=== PATIENT | female | born 1955 | race Caucasian/White ===

== ENCOUNTER → 2016-12-07 | Outpatient (CLI) | payer OTHER ==
[~2016-12-07] MED LIST: ARTI99.0 OU; BACITAB3 PO; E-Z-GAS II EFFERVESCENT PACKET (SODIUM BICARB./CITRIC ACID/SIMETHICONE) As Ordered ONE; E-Z-HD 98% w/w 340GM SUSP BTL As Ordered ONE; E-Z-PAQUE 96% w/w SUSP 176GM BTL As Ordered ONE; HERB LAX PO; MOTR200T44 PO; OLIVE LEAF EXTRACT PO; VITA-122 PO; XARE15TA PO
--- NOTE | 2016-12-07 16:34 | REP ---
ESOPHAGRAM, AIR CONTRAST: The procedure was performed under the direct supervision of Dr. Farmer. The images were reviewed with Dr. Farmer. A single view PA chest x-ray is submitted as a surface plate finisher film. The superior mediastinal structures are midline. The heart size is within normal limits. The lungs are clear. Liquid barium and gas-producing granules were given in the erect position as well as liquid barium in the prone oblique position in order to perform a double-contrast esophagram examination. The oral and pharyngeal stage of deglutition are unremarkable. Esophageal transport is prompt and efficient and there is no esophagitis, stricture, or mucosal ring. There is a sliding type hiatal hernia present. There is gastroesophageal reflux is not demonstrated to below the level of the damaris. Note is made of several subcentimeter polyps within the stomach. IMPRESSION: 1. There is a sliding type hiatal hernia present. There is gastroesophageal reflux demonstrated to below the level of the damaris. 2. Note is made of several subcentimeter polyps visualized within the stomach. 57 seconds of fluoroscopic time was utilized for this procedure. Reviewed by BENJAMIN Nieves 12/07/2016 04:36 PEdited and Signed by Alvaro Farmer MD 12/08/2016 06:23 P
== END ==
LOC: M RAD 08:16
PROVIDERS: ATTEND Internal Medicine Gastroenterology
DX: R13.12 Dysphagia, oropharyngeal phase (principal); K31.7 Polyp of stomach and duodenum; K44.9 Diaphragmatic hernia without obstruction or gangrene; K21.9 Gastro-esophageal reflux disease without esophagitis

== ENCOUNTER → 2016-12-08 | Outpatient (CLI) | payer OTHER ==
[~2016-12-08] MED LIST changes: -E-Z-GAS II EFFERVESCENT PACKET (SODIUM BICARB./CITRIC ACID/SIMETHICONE) As Ordered ONE; -E-Z-HD 98% w/w 340GM SUSP BTL As Ordered ONE; -E-Z-PAQUE 96% w/w SUSP 176GM BTL As Ordered ONE
== END ==
LOC: M SMT 10:50
PROVIDERS: ATTEND Physician Assistant Medical
DX: I82.432 Acute embolism and thrombosis of left popliteal vein (principal); I26.99 Other pulmonary embolism without acute cor pulmonale

== ENCOUNTER → 2017-03-21 | Outpatient (REF) | payer OTHER | LOC: M LABDRAW1 11:19 | PROVIDERS: ATTEND Physician Assistant Medical | DX: E78.01 Familial hypercholesterolemia (principal) ==

== ENCOUNTER 2018-11-17 05:09 | Emergency (ER) | payer OTHER ==
[~2018-11-17] VITALS: Ht 172.7 cm; Wt 77.3 kg
[~2018-11-17 05:09] MED LIST changes: +BACITAB PO; -BACITAB3 PO
[2018-11-17] MEDS ORDERED: VITA400C67 PO (05:15)
[2018-11-17] MEDS ORDERED: GARL500C5 PO (05:15)
[2018-11-17] MEDS ORDERED: NYQU1LIQ PO (05:15)
[2018-11-17] MEDS ORDERED: [UNRECOGNIZED DRUG - CODE] PO (05:19)
[2018-11-17] MEDS ORDERED: OLIV500C PO (05:19)
[2018-11-17 06:02] LABS: VENOUS BASE EXCESS 0.9 (-2.0-2.0); VENOUS HCO3 26.5 MEQ/L (23.0-27.0); VENOUS PARTIAL PRESSURE CO2 45.8 mmHg (38.0-50.0); VENOUS PARTIAL PRESSURE O2 34.4 mmHg (30.0-50.0); VENOUS STANDARD HCO3 24.4 MEQ/L; VENOUS TOTAL CO2 27.9 MEQ/L (24.0-28.0)
[2018-11-17 06:05] LABS: BASO % 0.3 % (0.0-1.0); EOS # 0.2 10^3/uL (0.0-0.50); EOS % 2.6 % (0.0-3.0); HEMATOCRIT 42.6 % (36.0-47.0); HEMOGLOBIN 13.8 g/dl (12.0-15.5); LYMPH # 1.2 10^3/uL (1.5-4.5); LYMPH % 21.5 % (24.0-44.0); MEAN CORPUSCULAR HEMOGLOBIN 29.7 pg (27.0-33.0); MEAN CORPUSCULAR HGB CONC 32.4 g/dl (32.0-36.5); MEAN CORPUSCULAR VOLUME 91.6 fl (80.0-96.0); MONO # 0.8 10^3/uL (0.0-0.8); MONO % 14.3 % (0.0-5.0); NEUTROPHILS # 3.5 10^3/uL (1.8-7.7); NEUTROPHILS % 61.1 % (36.0-66.0); PLATELET COUNT, AUTOMATED 203 10^3/uL (150-450); RED BLOOD COUNT 4.65 10^6/uL (4.00-5.40); WHITE BLOOD COUNT 5.7 10^3/uL (4.0-10.0)
[2018-11-17] MEDS ORDERED: IPRATROPIUM 0.5MG/ALBUTEROL 2.5MG INH SOL UD 3ML (DUONEB)(J7620) NEB ONE (06:15)
[2018-11-17 06:49] LABS: ALBUMIN 3.5 GM/DL (3.2-5.2); ALT/SGPT 20 U/L (12-78); BILIRUBIN,DIRECT 0.2 MG/DL (0.0-0.2); BILIRUBIN,TOTAL 0.7 MG/DL (0.2-1.0); BLOOD UREA NITROGEN 13 MG/DL (7-18); CALCIUM LEVEL 8.2 MG/DL (8.8-10.2); CARBON DIOXIDE LEVEL 26 MEQ/L (21-32); CHLORIDE LEVEL 109 MEQ/L (98-107); CPK CREATINE PHOSPHOKINASE 102 U/L (26-192); GLOMERULAR FILTRATION RATE > 60.0 (>45); GLUCOSE, FASTING 81 MG/DL (70-100); MB/CK RELATIVE INDEX 1.18 (< OR =4); NT-PRO BNP 68 PG/ML (<125); POTASSIUM SERUM 3.8 MEQ/L (3.5-5.1); SODIUM LEVEL 142 MEQ/L (136-145); THYROXINE (T4) 11.6 UG/DL (4.5-12.0); TOTAL PROTEIN 6.9 GM/DL (6.4-8.2); TROPONIN I < 0.02 NG/ML (< 0.10)
[2018-11-17 07:27] LABS: INFLUENZA A AMPLIFICATION NEGATIVE (NEGATIVE); INFLUENZA B AMPLIFICATION NEGATIVE (NEGATIVE)
[2018-11-17] MEDS ORDERED: PSEU30TA21 PO (08:37)
[2018-11-17] MEDS ORDERED: VENTAER INH (08:37)
--- NOTE | 2018-11-17 08:40 | REP ---
Clinical: Cough and dyspnea . Comparison: 09/08/2016 . Findings: The mediastinum and cardiac silhouette are stable and within normal limits for portable technique. The lung uribe are clear without acute consolidation, effusion, or pneumothorax. Skeletal structures are intact. Impression: No acute cardiopulmonary process appreciated. Electronically Signed by Reji Drummnod MD 11/17/2018 08:31 A
[2018-11-17] MEDS ORDERED: ALBUTEROL 90 MCG/ACT 8GM HFA INHALER INH ONE (08:45)
[2018-11-17 09:04] VITALS: BP 129/67
--- NOTE | 2018-11-17 09:37 | ECGEPIP ---
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
== END 2018-11-17 09:06 | disposition home or self-care (01) ==
LOC: M ED 05:09
DX: J06.9 Acute upper respiratory infection, unspecified (principal)

== ENCOUNTER → 2020-06-17 | Outpatient (CLI) | payer MEDICARE, OTHER ==
[~2020-06-17] MED LIST changes: -ARTI99.0 OU; +GARL500C5 PO; +LIDOCAINE; +NYQU1LIQ PO; +OLIV250C PO; +OLIV500C PO; +POLYOPD OU; +PSEU30TA21 PO; +SM G150T PO; +VENTAER INH; +VITA400C67 PO; +[UNRECOGNIZED DRUG - CODE] PO
== END ==
LOC: M LABSMTC 13:01
PROVIDERS: ATTEND Anesthesiology
DX: Z01.812 Encounter for preprocedural laboratory examination (principal); Z20.828 Contact with and (suspected) exposure to other viral communicable diseases
CPT/HCPCS: C9803; U0003

== ENCOUNTER 2020-06-22 06:45 | Day surgery (SDC) | payer MEDICARE ==
[~2020-06-22] VITALS: Ht 172.7 cm; Wt 80.7 kg
[~2020-06-22 06:45] MED LIST changes: +NS 1,000 ML IV ONE
[2020-06-22] MEDS ORDERED: LIDOCAINE 2% 100MG/5ML SDV (FOR ANES.) As Ordered ONE (08:11)
[2020-06-22] MEDS ORDERED: propofoL 200 MG/20 ML VIAL As Ordered ONE ×3 (08:11→08:35)
[2020-06-22] MEDS ORDERED: ePHEDrine SULFATE 25 MG/5 ML(5MG/ML) SYRINGE As Ordered ONE (08:28)
[2020-06-22 09:10] VITALS: BP 168/75
[2020-06-22 09:47] LABS: HEMATOCRIT 42.9 % (36.0-47.0); HEMOGLOBIN 13.6 g/dl (12.0-15.5); MEAN CORPUSCULAR HEMOGLOBIN 29.8 pg (27.0-33.0); MEAN CORPUSCULAR HGB CONC 31.7 g/dl (32.0-36.5); MEAN CORPUSCULAR VOLUME 94.1 fl (80.0-96.0); PLATELET COUNT, AUTOMATED 208 10^3/uL (150-450); RED BLOOD COUNT 4.56 10^6/uL (4.00-5.40); WHITE BLOOD COUNT 4.1 10^3/uL (4.0-10.0)
[2020-06-22 10:11] LABS: ALBUMIN 3.5 GM/DL (3.2-5.2); ALT/SGPT 20 U/L (12-78); BLOOD UREA NITROGEN 10 MG/DL (7-18); CALCIUM LEVEL 8.7 MG/DL (8.8-10.2); CARBON DIOXIDE LEVEL 29 MEQ/L (21-32); CHLORIDE LEVEL 111 MEQ/L (98-107); CREATININE FOR GFR 0.81 MG/DL (0.55-1.30); GLOMERULAR FILTRATION RATE > 60.0 (>45); GLUCOSE, FASTING 94 MG/DL (70-100); POTASSIUM SERUM 4.4 MEQ/L (3.5-5.1); SODIUM LEVEL 145 MEQ/L (136-145); TOTAL PROTEIN 6.9 GM/DL (6.4-8.2)
== END 2020-06-22 09:34 | disposition home or self-care (01) ==
LOC: M OPP 06:45
PROVIDERS: ATTEND Internal Medicine Gastroenterology
DX: K62.89 Other specified diseases of anus and rectum (principal); D49.0 Neoplasm of unspecified behavior of digestive system; D12.2 Benign neoplasm of ascending colon; C20 Malignant neoplasm of rectum; K51.211 Ulcerative (chronic) proctitis with rectal bleeding; K62.5 Hemorrhage of anus and rectum; R19.4 Change in bowel habit

== ENCOUNTER 2021-07-18 04:19 | Observation (INO) | payer MEDICARE, OTHER ==
[~2021-07-18] VITALS: Ht 172.7 cm; Wt 74.1 kg
[~2021-07-18 04:19] MED LIST changes: -NS 1,000 ML IV ONE
[2021-07-18 05:40] LABS: BASO % 0.2 % (0.0-1.0); EOS # 0.2 10^3/uL (0.0-0.5); EOS % 2.4 % (0.0-3.0); HEMOGLOBIN 11.9 g/dl (12.0-15.5); LYMPH # 0.5 10^3/uL (1.5-5.0); LYMPH % 8.5 % (24.0-44.0); MEAN CORPUSCULAR HEMOGLOBIN 30.3 pg (27.0-33.0); MEAN CORPUSCULAR HGB CONC 33.1 g/dl (32.0-36.5); MEAN CORPUSCULAR VOLUME 91.6 fl (80.0-96.0); MONO # 0.9 10^3/uL (0.0-0.8); MONO % 14.2 % (2.0-8.0); NEUTROPHILS # 4.7 10^3/uL (1.5-8.5); NEUTROPHILS % 74.2 % (36.0-66.0); PLATELET COUNT, AUTOMATED 179 10^3/uL (150-450); RED BLOOD COUNT 3.93 10^6/uL (4.00-5.40); WHITE BLOOD COUNT 6.3 10^3/uL (4.0-10.0)
[2021-07-18 05:50] LABS: INR 1.01; PROTHROMBIN TIME 13.7 SECONDS (12.7-14.5)
--- NOTE | 2021-07-18 06:02 | ECGEPIP ---
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
[2021-07-18 06:13] LABS: ALBUMIN 3.1 GM/DL (3.2-5.2); ALT/SGPT 20 U/L (12-78); BILIRUBIN,DIRECT 0.2 MG/DL (0.0-0.2); BILIRUBIN,TOTAL 1.2 MG/DL (0.2-1.0); BLOOD UREA NITROGEN 14 MG/DL (7-18); CALCIUM LEVEL 8.2 MG/DL (8.8-10.2); CARBON DIOXIDE LEVEL 28 MEQ/L (21-32); CHLORIDE LEVEL 108 MEQ/L (98-107); CPK CREATINE PHOSPHOKINASE 88 U/L (26-192); CREATININE FOR GFR 0.74 MG/DL (0.55-1.30); GLOMERULAR FILTRATION RATE > 60.0 (>45); GLUCOSE, FASTING 99 MG/DL (70-100); LIPASE 63 U/L (73-393); MB/CK RELATIVE INDEX 1.14 (< OR =4); POTASSIUM SERUM 3.9 MEQ/L (3.5-5.1); SODIUM LEVEL 140 MEQ/L (136-145); TOTAL PROTEIN 6.4 GM/DL (6.4-8.2); TROPONIN I < 0.02 NG/ML (< 0.10)
[2021-07-18] MEDS ORDERED: KETOROLAC 30 MG/ML 1ML VIAL IV ONE (07:10)
--- NOTE | 2021-07-18 08:12 | REP ---
INDICATION: r post rib pain, cough, short of breath. COMPARISON: Comparison portable chest x-ray 17 November 2018. TECHNIQUE: Five views including PA chest. FINDINGS: EKG monitoring electrodes are seen. There is an infiltrate in the right lung base consistent with pneumonia. There is no evidence of pneumothorax or hydrothorax. The left lung is clear. Heart is not enlarged. Pulmonary vasculature is not increased. Multiple views of the right rib cage demonstrate the right lower lobe infiltrate. No rib fracture or bony destructive lesion is appreciated. IMPRESSION: Right lower lobe infiltrate consistent with pneumonia. No rib fracture or bony destructive lesions seen. <Electronically signed by Parish Henriquez > 07/18/21 0816
[2021-07-18] MEDS ORDERED: ISOVUE-370 76% 100ML VIAL As Ordered ONE (08:19)
--- NOTE | 2021-07-18 09:02 | REP ---
INDICATION: hx of PE, pleuritic cp, sob, hx of cancer. COMPARISON: Comparison is made with today's right rib series views. TECHNIQUE: Contrast dose: 75 ML of Isovue [address] technique: Helical scanning is acquired and overlapping 1.5 mm and contiguous 3 mm axial images are reformatted. In addition, maximum intensity projection and multiplanar re-formation images are generated in sagittal and coronal imaging projections. FINDINGS: There is good opacification of the pulmonary arterial tree. There is a large filling defect representing a pulmonary embolus occupying the right main pulmonary artery distally with and extending into the right upper lobe and extensively into the right lower lobe pulmonary arterial tree consistent with a fairly large right pulmonary embolus. No left-sided embolus is appreciated. There is a small amount of right pleural fluid and there is an infiltrate in the right lower lobe consistent with pulmonary infarction. The left lung is clear. There is no pericardial effusion. No hilar or mediastinal mass or adenopathy is observed. The right ventricle to left ventricle ratio is borderline at is 0.925. The adrenal glands are normal. Visualized upper abdominal structures are unremarkable. IMPRESSION: The study is positive for pulmonary embolus with a fairly large central embolus in the right lung involving upper and lower lobe pulmonary arterial branches. Critical Findings: The critical information above was relayed directly by me by telephone to EMILIE STEEN on 07/18/2021 at 8:56 am with readback verification. <Electronically signed by Parish Henriquez > 07/18/21 0851
[2021-07-18] MEDS ORDERED: HOME MED LIST COMPLETE! XX SCH (09:35)
[2021-07-18] MEDS ORDERED: HEPARIN SOD (PORCINE) 5000UNITS/ML 1ML VIAL/SYRINGE IV ONE (09:40)
[2021-07-18] MEDS ORDERED: HEPARIN DRIP 25,000 UNITS in IV 1 EA IV SCH ×2 (10:00→16:00)
[2021-07-18 10:04] LABS: NT-PRO BNP 126 PG/ML (<125)
--- NOTE | 2021-07-18 10:15 | REP ---
INDICATION: Extensive R PE, concern for DVT. COMPARISON: None. TECHNIQUE: Bilateral lower extremity duplex venous scanning is performed from the groin to the ankle level. FINDINGS: The deep veins are anechoic and fully compressible from the groin to the popliteal fossa in the right lower extremity. Color flow imaging is homogeneous. Spectral Doppler interrogation demonstrates intact respiratory variation in flow and normal manual augmentation of flow. There is no evidence of deep vein thrombosis in the right femoropopliteal veins. However, there is mixed occlusive and nonocclusive thrombosis of the popliteal vein extending below the knee well into the peroneal veins which are thrombosed as well on the left side. Study is positive in the left lower extremity. The femoral and common femoral vein segments are clear on the left. IMPRESSION: Positive study with occlusive and nonocclusive thrombus visible in the left popliteal and peroneal veins. No evidence of DVT in the right lower extremity. <Electronically signed by Parish Henriquez > 07/18/21 1011
[2021-07-18 10:32] LABS: RSV AMPLIFICATION NEGATIVE (NEGATIVE)
[2021-07-18] MEDS ORDERED: MOM 30ML SUSPENSION UDC PO PRN (11:25)
[2021-07-18] MEDS ORDERED: MAALOX 30 ML SUSP *UDC PO PRN (11:25)
[2021-07-18] MEDS ORDERED: ACETAMINOPHEN TAB 650MG DOSE (2X325MG) PO PRN (11:25)
[2021-07-18 13:18] LABS: NT-PRO BNP 146 PG/ML (<125); TROPONIN I < 0.02 NG/ML (< 0.10)
--- NOTE | 2021-07-18 14:30 | ECHO ---
ECHOCARDIOGRAM DATE OF PROCEDURE: 07/18/2021 Age: Gender: Height: 173 cm Weight: 76 kg REFERRING PHYSICIAN: Randall Linton DO. INDICATION: Pulmonary embolus. MEASUREMENTS: IVS 1.0 cm LV 4.3 cm LVPW 1.0 cm LA 2.5 cm Aorta 3.8 cm Left atrium volume index 19 ml/m2 Mitral E wave velocity 70 A wave 76 E prime septal 7.6 E prime lateral 9.8 FINDINGS: This study is of acceptable technical quality. Patient is in sinus rhythm. Left ventricle is normal size and normal systolic function with estimated LVEF 60 to 65%. No segmental wall motion abnormalities are noted. Right ventricle also has normal size and systolic function. Both atria appear normal. Aortic valve is mildly sclerotic, but it has three cusps and preserved mobility. There are mild degenerative abnormalities of mitral valve, but mobility of leaflets is preserved. Tricuspid valve appears normal. Pulmonic valve was poorly seen but grossly appears normal. No pericardial effusion is noted. Inferior vena cava is of normal size. Aortic root was normal. Aortic arch and abdominal aorta were not well visualized. Doppler interrogation reveals competent aortic valve. There is trace mitral and trace tricuspid insufficiency. Calculated pulmonary artery pressure is within normal limits based on fair quality of TR jet. Pulmonic valve is functionally competent. Mitral inflow pattern and tissue Doppler imaging of mitral annulus revealed grade 1 diastolic dysfunction. CONCLUSIONS: 1. Study is of acceptable technical quality, underlying sinus rhythm. 2. Normal LV size and systolic function. Grade 1 diastolic dysfunction. 3. Normal RV size and systolic function. 4. No hemodynamically significant valvular disease. 5. Likely normal central venous pressure and normal pulmonary artery pressure. COMMENTS: This study argues against hemodynamic significance of pulmonary embolism.
[2021-07-18 15:45] VITALS: BP 141/66
[2021-07-18] MEDS ORDERED: HEPARIN SOD (PORCINE) 5000UNITS/ML 1ML VIAL/SYRINGE IV PRN (16:00)
--- NOTE | 2021-07-18 16:04 | HPEPDOC ---
[facility] Medical History & Physical Date of Admission Jul 18, 2021 Date of Service: Jul 18, 2021 Primary Care Physician: BRITNI LOVELL DO Other Provider Dr. Grupo Harrison MD - oncologist Attending Physician: ALICE STUBBS MD History and Physical CHIEF COMPLAINT: Right-sided chest/flank pain HISTORY OF PRESENT ILLNESS: Patient states he said he developed right-sided pain 3 to 4 days ago. She attributed the pain to a pulled muscle but it gradually got to the point where she could not take a deep breath beginning around 4 AM the day. Reports the pain radiates to the mid right side of her ribs up to her right shoulder. She describes the pain as stabbing in character. She took a Tylenol around 7 PM last night which was able to provide some relief and help the patient sleep. Of note patient has history of pulmonary embolisms and nonoccluding thrombi in the left lower extremity in 2015. She has not been compliant with anticoagulation therapy. She was placed on Xarelto after that incident but was switched to Eliquis after she complained that she could not tolerate Xarelto. States she took Eliquis till 2017 when her doctor told her it was okay to come off it. She was diagnosed with colorectal cancer on May 2020 and was told to go back on Eliquis while receiving treatment. Per patient, she started treatment in May and ended in October of this year. She was told that she needed to take it for 3 months after her last treatment session but admits to only taking it for 1 month. Per patient she does not tolerate Eliquis and causes her constipation and right ankle swelling. She decided to not take Eliquis anymore and manage it with flaxseed, and garlic. PAST MEDICAL HISTORY: 1. 2015: Pulmonary embolism and non-occluding thrombus in popliteal vein and thrombus within the superficial vein 2. May 2020: Diagnosed with colorectal cancer. Underwent surgery and treatment beginning in August 2020 PAST SURGICAL HISTORY: 1. 2019 colorectal cancer resection. 2. 2015: Kumar cyst removal from left leg. 3. 1984: . SOCIAL HISTORY: Marital status: . Resides in: Home Children: 2 daughters Employment: Retired Tobacco use: Denies ETOH: Denies Illicit drug use: Denies IV drug use: Denies Other relevant social factors: None FAMILY HISTORY: Father: History of lung cancer, smoking, COD stroke Mother: History of heart disease, COD sepsis from C. difficile Siblings: Had 2 brothers of cancer (1 of lymphoma) Children: 2 children healthy ALLERGIES: Please see below. REVIEW OF SYSTEMS: CONSTITUTIONAL: Denies fever chills, endorses weight loss. CARDIOVASCULAR: Endorses chest pain with deep breathing; denies palpitations. RESPIRATORY: Endorses shortness of breath; denies coughing. GASTROINTESTINAL: Denies nausea, vomiting, diarrhea, melena, bright red blood per rectum. GENITOURINARY: Denies dysuria, hematuria. MUSCULOSKELETAL: Endorses left medial calf pain on palpation. NEUROLOGICAL: Endorses headache but having bad headache last 2 days which is now resolved; denies dizziness, loss of consciousness, slurred speech, loss of balance. HOME MEDICATIONS: Please see below. PHYSICAL EXAMINATION: VITAL SIGNS: Temperature [98.8F], pulse [77], respiratory rate [20], blood pressure [141/66], pulse oximetry [98]% on room air. GENERAL APPEARANCE: 66-year-old female, resting in bed, in no acute distress unless asked to take a deep breath. HEENT: Head normocephalic/atraumatic, eyes PERRLA and EOMI, throat moist mucous membranes uvula midline CARDIOVASCULAR: Regular rate and rhythm. LUNGS: Clear to auscultation bilaterally, patient was unable to take a full deep breath due to right-sided flank pain. ABDOMEN: Normoactive bowel sounds, nontender to palpation in all 4 quadrants. 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 EXTREMITIES: Appropriate range of motion in all extremities. NEUROLOGICAL: No obvious deficits observed, speech normal rate and understandable. Skin: No dermatomal rash appreciated in the area of pain indicated by patient; was tender to palpation in the right lower flank/lower ribs PSYCHIATRIC: Alert and oriented x4. LABORATORY DATA: See below. IMAGING: -CT ANGIO CHEST (08/31/2016): Pulmonary emboli and second and third order branches of the right lower lobe pulmonary artery, and pulmonary embo:i in the third and fourth order branches of the left lower lobe pulmonary artery. -LLE DUPLEX (08/31/2016): Non occluding thrombus in the popliteal vein and thrombus within superficial veins laterally distal to the knee -LLE DUPLEX (2018): Patient had repeat duplex ultrasounds done of her lower extremities. No evidence of occlusive disease or clots was seen. -CT angiogram 07/18/2021 was positive for pulmonary embolus with a fairly large central embolus in the right lung involving upper and lower lobe pulmonary arterial branches. Also small amount of right pleural fluid and there is an inf iltrate in the right lower lobe consistent with pulmonary infarction. -Left lower extremity ultrasound 07/18/2021 indicated occlusive and nonocclusive thrombus visible in the left popliteal -Right chest x-ray 07/18/2021: Right lower lobe infiltrate consistent with pneumonia. No rib fracture or bony destructive lesions seen. MICROBIOLOGY: Please see below. ASSESSMENT: Patient is a 66-year-old female who presented to the ED last night with right- sided chest pain/flank pain and difficulty breathing. She has been non compliant with Eliquis since 2015 and while being treated for colorectal cancer which was found and surgically treated in May 2020. In regards to pain control patient denied wanting an opioid-based medication. PLAN: #Right pulmonary embolism and occlusive and occlusive thrombi -Seen on CT angio and left lower extremity duplex -D-dimer of 3206.34 -Consultation with Dr. Baeza was done who advised that patient may be a candidate for an IVC filter based on poor compliance with Eliquis. -Patient is aware that her holistic approach to anticoagulation is not working -Has been placed on heparin drip for treatment -Extensive conversations have been had with patient about her compliance with Eliquis and going forward she must adhere to taking this medication as directed. -Due to the state of patient lungs, I will stress to her that any future lung insult could be detrimental to her health and future respiratory function. Will discuss need for influenza,Covid, and both pneumonia vaccines with patient. -Incentive spirometry ordered to encourage full lung expansion #Right sided chest pain/flank pain -Unlikely musculoskeletal, x-ray was negative for any bony fractures -Tylenol as needed for pain control #Hx of Colorectal CA - s/p resection and chemotherapy - Will have outpatient follow up with ONcology #DVT prophylaxis - c/w full anticoagulation with Heparin drip (see above) Vital Signs Vital Signs Date Time Temp Pulse Resp B/P (MAP) Pulse Ox O2 Delivery O2 Flow Rate FiO2 07/18/21 15:22 97.5 80 18 135/70 (91) 97 Room Air Laboratory Data Labs 24H Laboratory Tests 2 07/18/21 05:27: Immature Granulocyte % (Auto) 0.5, Neutrophils (%) (Auto) 74.2H, Lymphocytes (%) (Auto) 8.5L, Monocytes (%) (Auto) 14.2H, Eosinophils (%) (Auto) 2.4, Basophils (%) (Auto) 0.2, Neutrophils # (Auto) 4.7, Lymphocytes # (Auto) 0.5L, Monocytes # (Auto) 0.9H, Eosinophils # (Auto) 0.2, Basophils # (Auto) 0.0, Nucleated Red Blood Cells % (auto) 0.0, Prothrombin Time 13.7, Prothromb Time International Ratio 1.01, Activated Partial Thromboplast Time 30.0, Anion Gap 4L, Glomerular Filtration Rate > 60.0, Lactic Acid Level 0.7, Calcium Level 8.2L, Total Bilirubin 1.2H, Direct Bilirubin 0.2, Aspartate Amino Transf (AST/SGOT) 17, Alanine Aminotransferase (ALT/SGPT) 20, Alkaline Phosphatase 51, Total Creatine Kinase 88, Creatine Kinase MB 1.0, Creatine Kinase MB Relative Index 1.14, Troponin I < 0.02, SW-Bzf-[id number]-Type Natriuretic Peptide 126H, Total Protein 6.4, Al bumin 3.1L, Albumin/Globulin Ratio 0.9L, Lipase 63L 07/18/21 06:56: Urine Color YELLOW, Urine Appearance HAZY, Urine pH 6.0, Urine Specific [place] 1.014, Urine Protein NEGATIVE, Urine Glucose (UA) NEGATIVE, Urine Ketones NEGATIVE, Urine Blood NEGATIVE, Urine Nitrite NEGATIVE, Urine Bilirubin NEGATIVE, Urine Urobilinogen 0.2, Urine Leukocyte Esterase 2+H, Urine WBC (Auto) 22H, Urine RBC (Auto) 4H, Urine Hyaline Casts (Auto) 0, Urine Bacteria (Auto) NEGATIVE, Urine Squamous Epithelial Cells 1, Urine Mucus (Auto) SMALL, Urine Sperm (Auto) 07/18/21 07:47: Bedside Glucose (Misc Panel) 91 07/18/21 08:56: Coronavirus (COVID-19)(PCR) NEGATIVE, Influenza Type A (RT-PCR) NEGATIVE, Influenza Type B (RT-PCR) NEGATIVE, Respiratory Syncytial Virus (PCR) NEGATIVE 07/18/21 10:17: D-Dimer, Quantitative 3206.34H 07/18/21 12:46: Troponin I < 0.02, GG-Tod-T-Type Natriuretic Peptide 146H CBC/BMP Laboratory Tests 07/18/21 05:27 Microbiology Microbiology 07/18/21 Urine Culture, Received Pending Home Medications No Active Prescriptions or Reported Meds Allergies Coded Allergies: hydrocortisone (Verified Allergy, Unknown, 06/15/20) from enema-dizziness/chestpains prednisone (Verified Allergy, Unknown, dizziness/chest pains, 06/15/20) GME ATTESTATION GME ATTESTATION My faculty preceptor for this patient encounter was physically present during the encounter and was fully available. All aspects of the patient interview, examination, medical decision making process, and medical care plan development were reviewed and approved by the faculty preceptor. The faculty preceptor is aware and concurs with the plan as stated in the body of this note and will attest to such by his/her cosignature. ATTENDING NOTE I, Alice Stubbs, have independently examined this patient and performed my own physical exam, as well as reviewed the documentation and edited where necessary. I have discussed in detail with the resident / student the findings and plan of treatment as documented by the resident / student and edited their note. I agree with their findings and treatment plan and have edited their documentation. I will continue to follow the patient during this hospital stay. Eros Burgos DO Jul 18, 2021 16:04 ALICE STUBBS MD Jul 18, 2021 16:59
[2021-07-18 20:00] VITALS: BP 121/59
[2021-07-18 20:58] LABS: NT-PRO BNP 160 PG/ML (<125); TROPONIN I < 0.02 NG/ML (< 0.10)
[2021-07-18] MEDS ORDERED: MORPHINE 2 MG/ML 1ML VIAL (J2270) IV PRN (21:10)
[2021-07-18] MEDS ORDERED: PERCOCET 5MG/325MG TAB PO PRN (21:10)
[2021-07-19] VITALS: BP 109/61
[2021-07-19 03:01] LABS: BASO % 0.2 % (0.0-1.0); EOS # 0.2 10^3/uL (0.0-0.5); EOS % 3.8 % (0.0-3.0); HEMATOCRIT 35.8 % (36.0-47.0); HEMOGLOBIN 11.8 g/dl (12.0-15.5); LYMPH % 19.3 % (24.0-44.0); MEAN CORPUSCULAR HEMOGLOBIN 30.2 pg (27.0-33.0); MEAN CORPUSCULAR VOLUME 91.6 fl (80.0-96.0); MONO # 0.8 10^3/uL (0.0-0.8); MONO % 16.1 % (2.0-8.0); NEUTROPHILS % 60.2 % (36.0-66.0); PLATELET COUNT, AUTOMATED 189 10^3/uL (150-450); RED BLOOD COUNT 3.91 10^6/uL (4.00-5.40)
[2021-07-19 03:32] LABS: ALBUMIN 2.7 GM/DL (3.2-5.2); ALT/SGPT 21 U/L (12-78); BILIRUBIN,TOTAL 0.9 MG/DL (0.2-1.0); BLOOD UREA NITROGEN 10 MG/DL (7-18); CALCIUM LEVEL 8.6 MG/DL (8.8-10.2); CARBON DIOXIDE LEVEL 26 MEQ/L (21-32); CHLORIDE LEVEL 111 MEQ/L (98-107); CREATININE FOR GFR 0.61 MG/DL (0.55-1.30); GLOMERULAR FILTRATION RATE > 60.0 (>45); GLUCOSE, FASTING 94 MG/DL (70-100); MAGNESIUM LEVEL 2.4 MG/DL (1.8-2.4); NT-PRO BNP 151 PG/ML (<125); POTASSIUM SERUM 3.9 MEQ/L (3.5-5.1); SODIUM LEVEL 142 MEQ/L (136-145); TOTAL PROTEIN 6.6 GM/DL (6.4-8.2); TROPONIN I < 0.02 NG/ML (< 0.10)
[2021-07-19 04:00] VITALS: BP 130/68
[2021-07-19 07:39] VITALS: BP 123/66
[2021-07-19] MEDS ORDERED: SENOKOT S TAB PO PRN (08:10)
[2021-07-19 09:48] LABS: NT-PRO BNP 124 PG/ML (<125); TROPONIN I < 0.02 NG/ML (< 0.10)
[2021-07-19] MEDS: APIXABAN 5 MG TAB (ELIQUIS) PO SCH ×2 (10:30→20:29)
[2021-07-19 12:00] VITALS: BP 153/73
[2021-07-19] MEDS ORDERED: ELIQ5TAB PO (13:31)
[2021-07-19 16:00] VITALS: BP 113/56
--- NOTE | 2021-07-19 19:22 | IPNPDOC ---
Text Note Date of Service The patient was seen on 07/19/21. NOTE SUBJECTIVE: Ms. Mark is a 66-year-old female who was seen this morning by the hospitalist service. She presents with right-sided chest pain that radiates to her back and difficulty breathing that is worse with deep inspiration. She had 1 bowel movement which provided some pain relief. She reports taking a holistic remedy the previous day prior to her admission. She denies fever, chills, night sweats, palpitations, changes in appetite, vomiting, changes in urination, hematuria, and hematochezia. Of note, patient had an extensive discussion with the hospitalist service regarding the risks and benefits of continuing anticoagulant therapy for the current PE and DVT as well as prevention of future thromboembolic events. There was concern of the patient's compliance due to the her previous history (see below). The patient seemed somewhat reluctant, but understood that due to the severity of her hypercoagulable state the benefits of anticoagulant therapy are far greater than the potential risks. After detailed conversation, she agreed to stay on a regiment of Eliquis. Due to this decision, there was no longer a need for an IVC filter placement. History: Patient had a history of PE and nonoccluding thrombi in the LLE in 2015. She was placed on Xarelto, but switched to Eliquis because she could not tolerate Xarelto due to cough and throat swelling. She took Eliquis until 2016 when her doctor told her she could discontinue. In 05/2020, she was diagnosed with colorectal cancer and told to go back on Eliquis while receiving radiation and chemotherapy that started in 08/2020. Her chemotherapy ended in 01/2021 and was told to continue with Eliquis for another 3 months. However, she discontinued on her own after 1 month because she felt better. The patient stated she could not tolerate Eliquis due to constipation and ankle swelling. She proceeded with home remedies including flaxseed and garlic. OBJECTIVE: VITAL SIGNS: Please see below. GENERAL APPEARANCE: Patient is lying on her left side due to the pain on her right side. She expresses intermittent pains on her right. HEENT: NC, AT. Mucus membranes moist. CARDIOVASCULAR: RRR. No murmurs, gallops, or rubs appreciated. LUNGS: Diminished lung sounds; difficult to assess lungs due to patient's pain and positioning. No apparent wheezes, rales or rhonchi appreciated. ABDOMEN: Positive bowel sounds. Tender along right costal margin. Nontender in all 4 quadrants. EXTREMITIES: Tender to palpation in LLE/mid-calf. NEUROLOGICAL: No obvious deficits observed. SKIN: No dermatomal rash appreciated in the area of pain indicated by patient. PSYCHIATRIC: Alert and oriented x4. IMAGIN07/18/2021 Right Rib X-ray Impression: "Right lower lobe infiltrate consistent with pneumonia. No rib fracture or bony destructive lesions seen." 07/18/2021 CTA Chest Impression: "The study is positive for pulmonary embolus with a fairly large central embolus in the right lung involving upper and lower lobe pulmonary arterial branches." 07/18/2021 Bilateral LE Duplex Impression: "Positive study with occlusive and nonocclusive thrombus visible in the left popliteal and peroneal veins. No evidence of DVT in the right lower extremity." 07/18/2021 Echocardiogram Conclusions: "1. Study is of acceptable technical quality, underlying sinus rhythm. 2. Normal LV size and systolic function. Grade 1 diastolic dysfunction. 3. Normal RV size and systolic function. 4. No hemodynamically significant valvular disease. 5. Likely normal central venous pressure and normal pulmonary artery pressure." ASSESSMENT/PLAN: Ms. Mark is a 66-year-old female with a history of previous PE, DVT, and colorectal cancer (last chemotherapy in 01/2021) who presents with right-sided pleuritic chest pain and dyspnea due to PE in right upper and lower lobe pulmonary arteries and DVT in left popliteal and peroneal veins. # PE in right upper and lower lobe pulmonary arteries - Patient has a history of bilateral PE in 2016. - 08/31/2016 CTA chest showed PE in second and third order branches of the right lower lobe pulmonary artery, and another PE in the third and fourth order branches of the left lower lobe pulmonary artery. - Patient continues to report right-sided chest pain that radiates to her back and difficulty breathing especially with deep inspiration. She did have a bowel movement which provided some pain relief. - PE has been confirmed on CTA chest. - Echocardiogram negative. - Stool occult negative. - After extensive discussion with the patient, the patient has agreed to take Eliquis. The severity of her condition has been stressed, and she understands the greater benefits to continuing anticoagulant therapy. - She had COVID in the past and believes the antibodies from her previous infection may be sufficient. She has agreed to get COVID antibody testing outpatient by her PCP. Depending on the results and antibody levels, she will make an informed decision about getting the COVID vaccine. - Patient has been switched from IV Heparin to Apixaban (Eliquis) 10mg for 7 days; after 7 days she will switch to Eliquis 5mg outpatient. - Patient does not want to take opioids for pain; she has agreed to ask for acetaminophen as needed. - Continue with incentive spirometry. # Occlusive and nonocclusive thrombus in left popliteal and peroneal veins - Patient has a history of DVT in 2015. - 08/31/2016 LLE Duplex showed nonoccluding thrombus in the popliteal vein and thrombus within the superficial veins laterally distal to the knee. - Patient has been switched from IV Heparin to Apixaban (Eliquis) 10mg for 7 days; after 7 days she will switch to Eliquis 5mg outpatient. # Right-sided pleuritic chest pain most likely 2/2 PE - Patient complains of right chest pain that radiates down to the costal margin and the back. - Rib X-ray negative; pain is unlikely musculoskeletal. - Patient does not want to take opioids for pain; she has agreed to ask for acetaminophen as needed. # History of colorectal cancer - Patient was diagnosed in 05/2020 and began radiation and chemotherapy in 08/2020. - Her last chemotherapy session was in 01/2021 - She will continue to follow up outpatient with her oncologist. DVT prophylaxis: Patient has been switched from IV Heparin to Apixaban (Eliquis) 10mg for 7 days; after 7 days she will switch to Eliquis 5mg outpatient. Disposition: Patient has been downgraded from PCU to [facility]; will monitor transition from IV to oral anticoagulation therapy; anticipate discharge tomorrow. VS,Denybone, I+O VS, Fishbone, I+O Laboratory Tests 07/19/21 02:54 Vital Signs Date Time Temp Pulse Resp B/P (MAP) Pulse Ox O2 Delivery O2 Flow Rate FiO2 07/19/21 16:00 99.3 83 17 113/56 (75) 96 Room Air I&O- Last 24 Hours up to 6 AM 07/19/21 06:00 Intake Total 736 ml Output Total 0 ml Balance 736 ml GME ATTESTATION GME ATTESTATION My faculty preceptor for this patient encounter was physically present during the encounter and was fully available. All aspects of the patient interview, examination, medical decision making process, and medical care plan development were reviewed and approved by the faculty preceptor. The faculty preceptor is aware and concurs with the plan as stated in the body of this note and will attest to such by his/her cosignature. ATTENDING NOTE I saw and examined Ms. Mark with the medical student and teaching team and I agree with the above detailed note on examination findings and the treatment plan. This morning she expressed a commitment to taking her eliquis as prescribed this time after this recurrent VTE with pleurisy and after much discussion about risk for potential massive PE that could cause cardiovascular collapse and potential if she continued to be non-compliant. She expressed understanding and at this time declined to have an IVC filter placed and follow the standard recommendation for full anticoagulation. She is therefore now being transitioned to eliquis from the heparin gtt with the goal to discharge her home tomorrow AM. MARIO DELONG OMS-3 Jul 19, 2021 19:10 CHAR RAIN MD Jul 19, 2021 21:02
[2021-07-19 20:00] VITALS: BP 125/60
[2021-07-20 04:00] VITALS: BP 115/57
[2021-07-20 06:20] LABS: BASO % 0.2 % (0.0-1.0); EOS # 0.2 10^3/uL (0.0-0.5); EOS % 5.1 % (0.0-3.0); HEMATOCRIT 34.2 % (36.0-47.0); HEMOGLOBIN 11.3 g/dl (12.0-15.5); LYMPH # 0.6 10^3/uL (1.5-5.0); LYMPH % 14.6 % (24.0-44.0); MEAN CORPUSCULAR HEMOGLOBIN 30.2 pg (27.0-33.0); MEAN CORPUSCULAR VOLUME 91.4 fl (80.0-96.0); MONO # 0.7 10^3/uL (0.0-0.8); NEUTROPHILS # 2.7 10^3/uL (1.5-8.5); NEUTROPHILS % 63.6 % (36.0-66.0); PLATELET COUNT, AUTOMATED 214 10^3/uL (150-450); RED BLOOD COUNT 3.74 10^6/uL (4.00-5.40); WHITE BLOOD COUNT 4.3 10^3/uL (4.0-10.0)
[2021-07-20 06:27] LABS: ALBUMIN 2.8 GM/DL (3.2-5.2); ALT/SGPT 19 U/L (12-78); BILIRUBIN,TOTAL 0.8 MG/DL (0.2-1.0); BLOOD UREA NITROGEN 11 MG/DL (7-18); CALCIUM LEVEL 8.5 MG/DL (8.8-10.2); CARBON DIOXIDE LEVEL 26 MEQ/L (21-32); CHLORIDE LEVEL 109 MEQ/L (98-107); CREATININE FOR GFR 0.64 MG/DL (0.55-1.30); GLOMERULAR FILTRATION RATE > 60.0 (>45); GLUCOSE, FASTING 93 MG/DL (70-100); MAGNESIUM LEVEL 2.4 MG/DL (1.8-2.4); POTASSIUM SERUM 4.1 MEQ/L (3.5-5.1); SODIUM LEVEL 140 MEQ/L (136-145); TOTAL PROTEIN 6.1 GM/DL (6.4-8.2)
[2021-07-20 08:00] VITALS: BP 107/57
[2021-07-20] MEDS: APIXABAN 5 MG TAB (ELIQUIS) PO SCH (08:23)
[2021-07-20 10:10] LABS: DRVV SCREEN 36.8 SEC
--- NOTE | 2021-07-20 16:20 | DS.PDOC ---
Discharge Summary General Date of Admission Jul 18, 2021 at 04:20 Date of Discharge July 20, 2021 Attending Physician: CHAR RAIN MD Discharge Summary PROCEDURES PERFORMED DURING STAY: None. ADMITTING DIAGNOSES: - Right pulmonary embolism and occlusive and occlusive thrombi - Right sided chest pain/flank pain - Hx of Colorectal cancer DISCHARGE DIAGNOSES: - PE in right upper and lower lobe pulmonary arteries - Occlusive and nonocclusive thrombus in left popliteal and peroneal veins - Right-sided pleuritic chest pain most likely 2/2 PE - History of colorectal cancer COMPLICATIONS/CHIEF COMPLAINT: Right-sided chest and flank pain. HISTORY OF PRESENT ILLNESS/HOSPITAL COURSE: Ms. Mark is a 66-year-old female who presented to the ED on 07/18/2021 with right-sided chest and flank pain for the past 3-4 days. She initially attributed the pain to a pulled muscle but gradually got to the point where she had severe pain and dyspnea on deep inspiration. She described the pain as sharp and stabbing that radiated from her right chest to the ribs along the mid-scapular line and up towards her shoulder. She tried Tylenol without significant relief. She denied fever, chills, palpitations, coughing, nausea, vomiting, diarrhea, melena, bright red blood per rectum, dysuria, hematuria, dizziness, loss of consciousness, slurred speech, and loss of balance. In the ED, the patient had an elevated D-dimer. CTA chest showed a pulmonary embolus in right upper and lower lobe pulmonary arteries. Bilateral LE duplex showed occlusive and nonocclusive thrombus visible in the left popliteal and peroneal veins. The patient was placed on IV Heparin drip. She was admitted for right pulmonary emboli and DVT in LLE. Patient had a history of PE and nonoccluding thrombi in the LLE in 2016. She was placed on Xarelto, but switched to Eliquis because she could not tolerate Xarelto due to cough and throat swelling. She took Eliquis until 2016 when her doctor told her she could discontinue. In 05/2020, she was diagnosed with colorectal cancer and told to go back on Eliquis while receiving radiation and chemotherapy that started in 08/2020. Her chemotherapy ended in 01/2021 and was told to continue with Eliquis for another 3 months. However, she discontinued on her own after 1 month because she felt better. The patient stated she could not tolerate Eliquis due to constipation and ankle swelling. She proceeded with home remedies including flaxseed and garlic. Despite the evidence provided by imaging, the patient was somewhat reluctant to be compliant on an anticoagulant therapy outpatient. She wanted to stay on homeopathic remedies. However, the patient had an extensive discussion with the hospitalist service regarding the risks and benefits of continuing anticoagulant therapy for the current PE and DVT as well as prevention of future thromboembol ic events. She was told that without continued anticoagulant therapy she would be at increased risk for a massive and potentially fatal PE. She understood that due to the severity of her hypercoagulable state the benefits of anticoagulant therapy are far greater than the potential risks. She agreed to commit to a regiment of Eliquis. She declined an IVC filter placement. The patient was able to transition from IV Heparin to oral Eliquis. She was started on Eliquis 10mg for 7 days, and she will continue to Eliquis 5mg outpatient. Prior to discharge, the patient's pleurisy and dyspnea had resolved with continued anticoagulant therapy and incentive spirometry exercises. DISCHARGE MEDICATIONS: Please see below. ALLERGIES: Please see below. PHYSICAL EXAMINATION ON DISCHARGE: VITAL SIGNS: Please see below. GENERAL: Patient is well-appearing female in no acute distress sitting upright i n a chair. She expressed signification pain relief and improvement from the previous day. HEENT: NC, AT. EOMI. PERRLA. Mucus membranes moist. CARDIOVASCULAR EXAMINATION: RRR. No murmurs, rubs, or gallops appreciated. RESPIRATORY EXAMINATION: Clear to auscultation bilaterally. No obvious wheezing, rales, or rhonchi appreciated. ABDOMINAL EXAMINATION: Positive bowel sounds. Soft abdomen. Non-tender to palpation in all 4 quadrants. EXTREMITIES: Non-tender to palpation in bilateral LE. No pedal edema appreciated. Bilateral radial, dorsalis pedis, and posterior tibialis pulses appreciated. SKIN: No obvious rashes, lesions, or ecchymoses noted. NEUROLOGICAL EXAMINATION: No focal deficits observed. PSYCHIATRIC EXAMINATION: Mood is stable. A&O X4. LABORATORY DATA: Please see below. IMAGIN07/18/2021 Right Rib X-ray Impression: "Right lower lobe infiltrate consistent with pneumonia. No rib fracture or bony destructive lesions seen." 07/18/2021 CTA Chest Impression: "The study is positive for pulmonary embolus with a fairly large central embolus in the right lung involving upper and lower lobe pulmonary arterial branches." 07/18/2021 Bilateral LE Duplex Impression: "Positive study with occlusive and nonocclusive thrombus visible in the left popliteal and peroneal veins. No evidence of DVT in the right lower extremity." 07/18/2021 Echocardiogram Conclusions: "1. Study is of acceptable technical quality, underlying sinus rhythm. 2. Normal LV size and systolic function. Grade 1 diastolic dysfunction. 3. Normal RV size and systolic function. 4. No hemodynamically significant valvular disease. 5. Likely normal central venous pressure and normal pulmonary artery pressure." PROGNOSIS: Fair. ACTIVITY: As tolerated. DIET: As tolerated. DISPOSITION: Home. DISCHARGE INSTRUCTIONS: - Please continue Eliquis 10mg until 07/25/2021 (full 7 days) for PE and DVT management. - Patient will transition to Eliquis 5mg after the completed 7-day course of Eliquis 10mg. - Please follow up outpatient with PCP in 2-3 days for continued PE and DVT management and medication compliance. - Please follow up with oncologist as scheduled for history of colorectal cancer. - Please return to the hospital if symptoms worsen or if new symptoms develop. ITEMS TO FOLLOWUP ON ON OUTPATIENT: - PE in right upper and lower lobe pulmonary arteries - Occlusive and nonocclusive thrombus in left popliteal and peroneal veins - Medication compliance - History of colorectal cancer DISCHARGE CONDITION: Stable. TIME SPENT ON DISCHARGE: 30 minutes. Vital Signs/I&Os Vital Signs Date Time Temp Pulse Resp B/P (MAP) Pulse Ox O2 Delivery O2 Flow Rate FiO2 07/20/21 08:00 98.3 68 17 107/57 (74) 96 Room Air I&O- Last 24 Hours up to 6 AM 07/20/21 06:00 Intake Total 2060 ml Output Total 800 ml Balance 1260 ml Laboratory Data Labs 24H Laboratory Tests 2 07/20/21 05:25: Immature Granulocyte % (Auto) 0.5, Neutrophils (%) (Auto) 63.6, Lymphocytes (%) (Auto) 14.6L, Monocytes (%) (Auto) 16.0H, Eosinophils (%) (Auto) 5.1H, Basophils (%) (Auto) 0.2, Neutrophils # (Auto) 2.7, Lymphocytes # (Auto) 0.6L, Monocytes # (Auto) 0.7, Eosinophils # (Auto) 0.2, Basophils # (Auto) 0.0, Nucleated Red Blood Cells % (auto) 0.0, Anion Gap 5L, Glomerular Filtration Rate > 60.0, Calcium Level 8.5L, Magnesium Level 2.4, Total Bilirubin 0.8, Aspartate Amino Transf (AST/SGOT) 16, Alanine Aminotransferase (ALT/SGPT) 19, Alkaline Phosphatase 50, Total Protein 6.1L, Albumin 2.8L, Albumin/Globulin Ratio 0.8L CBC/BMP Laboratory Tests 07/20/21 05:25 Microbiology Microbiology 07/19/21 Stool Occult Blood (DUY) - Final, Complete 07/18/21 Urine Culture - Final, Complete Discharge Medications Scheduled Apixaban (Eliquis) 5 Mg Tablet, 5 MG PO BID 10 MG (2 TABS) TWICE PER DAY FOR 7 DAYS THEN 5 MG (1 TAB) TWICE PER DAY Allergies Coded Allergies: hydrocortisone (Verified Allergy, Unknown, 06/15/20) from enema-dizziness/chestpains prednisone (Verified Allergy, Unknown, dizziness/chest pains, 06/15/20) GME ATTESTATION GME ATTESTATION My faculty preceptor for this patient encounter was physically present during the encounter and was fully available. All aspects of the patient interview, examination, medical decision making process, and medical care plan development were reviewed and approved by the faculty preceptor. The faculty preceptor is aware and concurs with the plan as stated in the body of this note and will attest to such by his/her cosignature. ATTENDING NOTE I examined Ms. Mark with the medical team and we discussed her presenting symptoms, clinical progression, physicam examination today and discharge plan and I agree with the above synopsis of her hospital course and recommendations. At this time, we are discharging her home on eliquis with the strict instruction to take her eliquis as prescribed and she reassured her of her intention to do so. She will follow up with her PCP shortly. MARIO DELONG OMS-3 Jul 20, 2021 16:20 CHAR RAIN MD Jul 20, 2021 17:39
[2021-07-22 13:07] LABS: ANTI THROMBIN 3 ANTIGEN IMMUNO 88 % (72-124); ANTI THROMBIN 3 FUNCT ACTIVITY 97 % (75-135); CARDIOLIPIN IGA ANTIBODY <9 APL U/mL (0-11); CARDIOLIPIN IGG ANTIBODY <9 GPL U/mL (0-14); CARDIOLIPIN IGM ANTIBODY <9 MPL U/mL (0-12); PHOSPHOLIPIDS LEVEL 210 mg/dL (150-250); PROTEIN C FUNCTIONAL ACTIVITY 103 % (73-180); PROTEIN S FUNCTIONAL ACTIVITY 53 % (63-140)
== END 2021-07-20 15:35 | disposition home or self-care (01) ==
LOC: M ED 04:19 → M ED INP 04:20 → INTOOBSV 04:20 → ENRESERV 13:10 → M PCU 15:45 → UNDODISOB 07-20 15:35
PROVIDERS: ADMIT Internal Medicine; ATTEND Internal Medicine
DX: I26.99 Other pulmonary embolism without acute cor pulmonale (principal); I82.432 Acute embolism and thrombosis of left popliteal vein; Z79.01 Long term (current) use of anticoagulants; R07.89 Other chest pain; Z85.038 Personal history of other malignant neoplasm of large intestine; Z88.8 Allergy status to other drugs, medicaments and biological substances; K59.00 Constipation, unspecified
CPT/HCPCS: 36415; 71101; 71275; 80048; 80053; 80076; 81001; 81240; 81241; 82270; 82550; 82553; 83605; 83690; 83735; 83880; 84311; 84484; 85025; 85300; 85301; 85303; 85305; 85379; 85610; 85730; 86147; 87086; 87631; 93005; 93041; 93306; 93970; 96365; 96366; 96375; 96376; 97116; 97161; 99285; G0378; J1644; J1885; Q9967

== ENCOUNTER → 2021-12-08 | Outpatient (CLI) | payer MEDICARE, BC ==
[~2021-12-08] MED LIST changes: +ELIQ5TAB PO
[2021-12-08 14:23] LABS: BLOOD UREA NITROGEN 18 MG/DL (7-18); CALCIUM LEVEL 9.4 MG/DL (8.8-10.2); CARBON DIOXIDE LEVEL 30 MEQ/L (21-32); CHLORIDE LEVEL 108 MEQ/L (98-107); CREATININE FOR GFR 0.82 MG/DL (0.55-1.30); GLOMERULAR FILTRATION RATE > 60.0 (>45); GLUCOSE, FASTING 90 MG/DL (70-100); POTASSIUM SERUM 4.6 MEQ/L (3.5-5.1); SODIUM LEVEL 141 MEQ/L (136-145)
== END ==
LOC: M RAD 13:33
PROVIDERS: ATTEND Nurse Practitioner Adult Health
DX: Z86.718 Personal history of other venous thrombosis and embolism (principal)

== ENCOUNTER → 2022-05-12 | Outpatient (CLI) | payer MEDICARE, BC | LOC: M PLAIMG 09:28 | PROVIDERS: ATTEND Physician Assistant | DX: R06.00 Dyspnea, unspecified (principal); R91.8 Other nonspecific abnormal finding of lung field ==

== ENCOUNTER → 2024-02-29 | Outpatient (CLI) | payer MEDICARE ==
[~2024-02-29] MED LIST changes: +ARTIDRO4 OU; -POLYOPD OU
== END ==
LOC: M WUC 10:36
PROVIDERS: ATTEND Physician Assistant
DX: S90.31XA Contusion of right foot, initial encounter (principal); M19.071 Primary osteoarthritis, right ankle and foot; Y93.9 Activity, unspecified; Y92.9 Unspecified place or not applicable